=== PATIENT | male | born 1995 | race American Indian/Alaskan Native ===

== ENCOUNTER 2016-09-15 08:41 | Emergency (ER) | payer SELFPAY ==
[2016-09-15] MEDS ORDERED: MOTRIN PO ONE (11:59)
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
[2016-09-15 14:33] VITALS: BP 131/70
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
== END 2016-09-15 14:33 | disposition home or self-care (01) ==
LOC: ED 08:41
DX: S13.4XXA Sprain of ligaments of cervical spine, initial encounter (principal); V49.49XA Driver injured in collision with other motor vehicles in traffic accident, initial encounter; Y93.89 Activity, other specified; Y92.89 Other specified places as the place of occurrence of the external cause; Y99.8 Other external cause status
CPT/HCPCS: 72050; 72072